=== PATIENT | male | born 1960 | race Caucasian/White ===

== ENCOUNTER → 2016-05-14 | Day surgery (SDC) | payer OTHER | END | disposition home or self-care (01) | LOC: FAS 07:49 | PROVIDERS: Anesthesiology | DX: Z12.11 Encounter for screening for malignant neoplasm of colon (principal); K21.9 Gastro-esophageal reflux disease without esophagitis; I10 Essential (primary) hypertension; M19.90 Unspecified osteoarthritis, unspecified site; F17.210 Nicotine dependence, cigarettes, uncomplicated; J44.9 Chronic obstructive pulmonary disease, unspecified; Z98.890 Other specified postprocedural states; Z88.2 Allergy status to sulfonamides; Z79.1 Long term (current) use of non-steroidal anti-inflammatories (NSAID); Z79.899 Other long term (current) drug therapy | CPT/HCPCS: 36415; 80048; J2704 ==

== ENCOUNTER 2016-05-16 07:39 | Inpatient (IN) | payer OTHER ==
[2016-05-16 08:41] LABS: BASOPHIL 0.4 % (0-2); EOSINOPHIL 0.8 % (0-5); HCT 45.5 % (42.0-52.0); LYMPHOCYTE 14.8 % (15-48); MCH 31.2 pg (25.0-31.0); MCHC 35.2 g/dL (32.0-36.0); MCV 88.7 fL (78.0-100.0); MONOCYTE 9.2 % (0-12); MPV 9.6 fL (6.0-9.5); NEUTROPHIL 74.8 % (41-80); PLT 196 K/uL (150-400); RBC 5.13 M/uL (4.70-6.00); RDW 13.9 % (11.5-14.0); WBC 10.4 K/uL (4.0-10.5)
[2016-05-16 09:00] LABS: ALBUMIN 4.8 g/dL (3.5-5.0); ALKALINE PHOSHATASE 108 U/L (59-141); ALT 16 U/L (2-40); AMYLASE 854 U/L (28-100); AST 19 U/L (0-37); BILIRUBIN - TOTAL 1.3 mg/dL (0.1-1.0); BUN 11 mg/dL (6-25); CHLORIDE 100 mmol/L (98-107); GLOBULIN (CALCULATION) 2.5 g/dL (2.2-4.2); GLUCOSE 111 mg/dL (70-105); POTASSIUM 3.6 mmol/L (3.5-5.1); TOTAL PROTEIN 7.3 g/dL (6.4-8.3)
[2016-05-16 09:06] LABS: LIPASE >600 U/L (13-60)
[2016-05-17 05:51] LABS: BASOPHIL 0.4 % (0-2); EOSINOPHIL 1.4 % (0-5); HCT 41.5 % (42.0-52.0); HGB 14.3 g/dl (13.2-18.0); LYMPHOCYTE 16.1 % (15-48); MCHC 34.5 g/dL (32.0-36.0); MONOCYTE 15.8 % (0-12); MPV 9.8 fL (6.0-9.5); NEUTROPHIL 66.3 % (41-80); PLT 163 K/uL (150-400); RBC 4.61 M/uL (4.70-6.00); RDW 13.8 % (11.5-14.0); WBC 7.8 K/uL (4.0-10.5)
[2016-05-17 06:11] LABS: ALBUMIN 4.3 g/dL (3.5-5.0); ALKALINE PHOSHATASE 95 U/L (59-141); ALT 11 U/L (2-40); AST 12 U/L (0-37); BILIRUBIN - TOTAL 1.1 mg/dL (0.1-1.0); BUN 7 mg/dL (6-25); CHLORIDE 96 mmol/L (98-107); CREATININE 0.8 mg/dL (0.7-1.2); GLOBULIN (CALCULATION) 1.6 g/dL (2.2-4.2); GLUCOSE 117 mg/dL (70-105); MAGNESIUM 1.83 mg/dL (1.40-2.10); POTASSIUM 3.7 mmol/L (3.5-5.1); TOTAL PROTEIN 5.9 g/dL (6.4-8.3)
[2016-05-17 06:21] LABS: LIPASE >600 U/L (13-60)
[2016-05-18 05:06] LABS: BASOPHIL 0.7 % (0-2); EOSINOPHIL 2.5 % (0-5); HCT 40.1 % (42.0-52.0); HGB 13.7 g/dl (13.2-18.0); LYMPHOCYTE 25.8 % (15-48); MCH 30.9 pg (25.0-31.0); MCHC 34.2 g/dL (32.0-36.0); MCV 90.3 fL (78.0-100.0); MONOCYTE 15.5 % (0-12); MPV 9.6 fL (6.0-9.5); NEUTROPHIL 55.5 % (41-80); PLT 149 K/uL (150-400); RBC 4.44 M/uL (4.70-6.00); RDW 13.7 % (11.5-14.0); WBC 5.9 K/uL (4.0-10.5)
[2016-05-18 05:23] LABS: AMYLASE 438 U/L (28-100); BUN 6 mg/dL (6-25); CHLORIDE 108 mmol/L (98-107); CREATININE 0.9 mg/dL (0.7-1.2); GLUCOSE 103 mg/dL (70-105); POTASSIUM 4.1 mmol/L (3.5-5.1)
[2016-05-18 05:29] LABS: LIPASE >600 U/L (13-60)
[2016-05-19 05:33] LABS: EOSINOPHIL 2.7 % (0-5); HCT 42.9 % (42.0-52.0); HGB 14.7 g/dl (13.2-18.0); LYMPHOCYTE 23.8 % (15-48); MCH 30.9 pg (25.0-31.0); MCHC 34.3 g/dL (32.0-36.0); MCV 90.1 fL (78.0-100.0); MONOCYTE 13.7 % (0-12); MPV 10.1 fL (6.0-9.5); NEUTROPHIL 58.8 % (41-80); PLT 159 K/uL (150-400); RBC 4.76 M/uL (4.70-6.00); RDW 13.6 % (11.5-14.0); WBC 6.3 K/uL (4.0-10.5)
[2016-05-19 05:52] LABS: ALKALINE PHOSHATASE 89 U/L (59-141); ALT 13 U/L (2-40); AMYLASE 193 U/L (28-100); AST 18 U/L (0-37); BILIRUBIN - TOTAL 1.4 mg/dL (0.1-1.0); BUN 6 mg/dL (6-25); CHLORIDE 109 mmol/L (98-107); CREATININE 0.8 mg/dL (0.7-1.2); GLOBULIN (CALCULATION) 2.7 g/dL (2.2-4.2); GLUCOSE 93 mg/dL (70-105); MAGNESIUM 1.92 mg/dL (1.40-2.10); POTASSIUM 4.2 mmol/L (3.5-5.1); TOTAL PROTEIN 6.7 g/dL (6.4-8.3)
[2016-05-19 06:01] LABS: LIPASE >600 U/L (13-60)
[2016-05-20 04:32] LABS: HCT 40.9 % (42.0-52.0); HGB 14.3 g/dl (13.2-18.0); MCV 88.7 fL (78.0-100.0); MPV 10.1 fL (6.0-9.5); RBC 4.61 M/uL (4.70-6.00); RDW 13.2 % (11.5-14.0); WBC 5.6 K/uL (4.0-10.5)
[2016-05-20 04:49] LABS: ALBUMIN 4.1 g/dL (3.5-5.0); BILIRUBIN - TOTAL 1.5 mg/dL (0.1-1.0); CREATININE 0.9 mg/dL (0.7-1.2); GLOBULIN (CALCULATION) 2.5 g/dL (2.2-4.2); POTASSIUM 4.2 mmol/L (3.5-5.1); TOTAL PROTEIN 6.6 g/dL (6.4-8.3)
[2016-05-21 05:56] LABS: ALBUMIN 4.3 g/dL (3.5-5.0); BILIRUBIN - TOTAL 1.9 mg/dL (0.1-1.0); CREATININE 0.9 mg/dL (0.7-1.2); GLOBULIN (CALCULATION) 2.9 g/dL (2.2-4.2); POTASSIUM 4.1 mmol/L (3.5-5.1); TOTAL PROTEIN 7.2 g/dL (6.4-8.3)
== END 2016-05-21 13:50 | disposition home or self-care (01) | DRG 439 ==
LOC: FER 07:39 → FMS 12:00
PROVIDERS: Internal Medicine; ADMIT Internal Medicine
DX: K85.90 Acute pancreatitis without necrosis or infection, unspecified (principal); K86.3 Pseudocyst of pancreas; K27.9 Peptic ulcer, site unspecified, unspecified as acute or chronic, without hemorrhage or perforation; E87.1 Hypo-osmolality and hyponatremia; K86.1 Other chronic pancreatitis; K21.9 Gastro-esophageal reflux disease without esophagitis; I10 Essential (primary) hypertension; F10.21 Alcohol dependence, in remission; F17.210 Nicotine dependence, cigarettes, uncomplicated; M54.2 Cervicalgia; M54.9 Dorsalgia, unspecified; G89.29 Other chronic pain; J44.9 Chronic obstructive pulmonary disease, unspecified; R00.1 Bradycardia, unspecified; E80.6 Other disorders of bilirubin metabolism; Z88.2 Allergy status to sulfonamides
CPT/HCPCS: 36415; 74022; 80048; 80053; 82150; 83690; 83735; 85025; 93005; C9113; J0743; J1170; J2405; J2704

== ENCOUNTER 2016-07-28 13:03 | Emergency (ER) | payer OTHER ==
[2016-07-28 14:24] LABS: BASOPHIL 0.5 % (0-2); EOSINOPHIL 1.1 % (0-5); HCT 46.6 % (42.0-52.0); HGB 16.5 g/dl (13.2-18.0); LYMPHOCYTE 13.3 % (15-48); MCH 30.3 pg (25.0-31.0); MCHC 35.4 g/dL (32.0-36.0); MCV 85.5 fL (78.0-100.0); MONOCYTE 9.6 % (0-12); MPV 9.5 fL (6.0-9.5); NEUTROPHIL 75.5 % (41-80); PLT 342 K/uL (150-400); RBC 5.45 M/uL (4.70-6.00); RDW 12.7 % (11.5-14.0)
[2016-07-28 14:27] LABS: WBC 21.1 K/uL (4.0-10.5)
[2016-07-28 14:37] LABS: ALBUMIN 4.5 g/dL (3.5-5.0); BILIRUBIN - TOTAL 0.7 mg/dL (0.1-1.0); GLOBULIN (CALCULATION) 3.5 g/dL (2.2-4.2)
[2016-07-28 15:29] LABS: BILIRUBIN NEGATIVE (NEGATIVE); BLOOD NEGATIVE Ery/uL (NEGATIVE); CLARITY CLEAR (CLEAR); COLOR YELLOW (YELLOW); GLUCOSE (U) NORMAL (NORMAL); KETONE (U) TRACE mg/dL (NEGATIVE); LEUKOCYTES NEGATIVE Leu/uL (NEGATIVE); NITRITE NEGATIVE (NEGATIVE); PROTEIN NEGATIVE (NEGATIVE); UROBILINOGEN 0.2 mg/dL (0.2-1.0); pH 8.5 (5.0-9.0)
== END 2016-07-28 19:07 | disposition other institution (70) ==
LOC: FER 13:03
PROVIDERS: Emergency Medicine
DX: K85.90 Acute pancreatitis without necrosis or infection, unspecified (principal); K86.3 Pseudocyst of pancreas; I10 Essential (primary) hypertension; F17.200 Nicotine dependence, unspecified, uncomplicated; F32.9 Major depressive disorder, single episode, unspecified; Z98.890 Other specified postprocedural states; Z88.2 Allergy status to sulfonamides; Z79.899 Other long term (current) drug therapy
CPT/HCPCS: 36415; 80053; 81003; 82150; 83690; 84484; 85025; 87040; J1170; J2405; J2543; Q9967